=== PATIENT | female | born 1995 | race African-American/Black ===

== ENCOUNTER 2016-05-10 01:46 | Emergency (ER) | payer OTHER | END 2016-05-10 03:10 | disposition home or self-care (01) | LOC: FER 01:46 | DX: H10.33 Unspecified acute conjunctivitis, bilateral (principal); R51 Headache; I10 Essential (primary) hypertension; F17.210 Nicotine dependence, cigarettes, uncomplicated; Z88.6 Allergy status to analgesic agent | CPT/HCPCS: 99282 ==